=== PATIENT | male | born 1995 | race African-American/Black ===

== ENCOUNTER 2016-06-30 14:42 | Emergency (ER) | payer OTHER ==
[2016-06-30] MEDS ORDERED: DERMABOND TOPICAL SKIN ADHESIVE As Ordered ONE (15:34)
--- NOTE | 2016-06-30 16:11 | EDDOCDS ---
[facility] Name: Rustam Quesada Age: 21 yrs Sex: Male : 1995 Arrival Date: 06/30/2016 Time: 14:42 Bed I7 Private MD: NO PRIMARY PHYSICIAN, . Disposition: 06/30/16 15:49 Discharged to Home/Self Care. Impression: Laceration without foreign body of other part of head - RIGHT cheek. - Condition is Stable. - Discharge Instructions: Tissue Adhesive Wound Care, Facial Laceration, [id number]-[id number]. - Medication Reconciliation, Local Pharmacy Hours form. - Follow up: Private Physician; When: 2 - 3 days; Reason: Further diagnostic work-up, Recheck today's complaints, Continuance of care. - Problem is new. - Symptoms have improved. Historical: - Allergies: Penicillins (Unknown); - Home Meds: 1. albuterol sulfate 90 mcg/actuation Inhl aepb 1 puff every 4 hours as needed (Last dose: Unknown) - PMHx: Asthma; - PSHx: Tracheostomy; - Immunization history:: Last tetanus immunization: 07/2015. - Family history: Not pertinent. - Social history: Smoking status: Patient uses tobacco products, light tobacco smoker. No barriers to communication noted, The patient speaks fluent Upper Sorbian. - : The pt / caregiver states he / she is not on anticoagulants. Home medication list is obtained from the patient. - Exposure Risk Screening:: None identified. Vital Signs: 06/30 14:43 BP 165 / 62; Pulse 74; Resp 18; Temp 98.5; Pulse Ox 100% ; Weight 100.7 kg / 222.01 elp lbs; Height 5 ft. 7 in. (170.18 cm); Pain 5/10; 16:06 BP 146 / 67; Pulse 68; Resp 16; Temp 99.1(O); Pulse Ox 98% on R/A; Pain 0/10; jo3 14:43 Body Mass Index 34.77 (100.70 kg, 170.18 cm) elp Procedures: 15:51 Laceration repair:. btw Laceration: 15:51 Wound Repair of 2cm ( 0.8in ) subcutaneous laceration to right cheek. Linear shaped.. btw Hemostasis noted.. Distal neuro/vascular/tendon intact. Anesthesia: None with None. Wound prep: Simple cleansing with hibiclenz by provider, Wound irrigation with saline by provider. Skin closed with thin layer Dermabond. Dressed with bandaid. Patient tolerated well. MDM: 15:21 [facility] Payment Agreement was scanned into [employer] and attached to record. lg 15:33 Dermabond to bedside ordered. bt 15:39 Financial registration complete. lg Signatures: Aye Montelongo, Reg Reg lg Mara Murillo,RN RN kr3 Stephanie Nina,RN RN jo3 Eliceo Calix PA PA btw Stephanie Knapp, RN RN jc4 The chart was reviewed and I authenticate all verbal orders and agree with the evaluation and treatment provided.Attachments: 15:21 [facility] Payment Agreement lg MTDD
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
--- NOTE | 2016-07-03 11:21 | EDDOCDS ---
Physician Documentation [facility] Name: Rustam Quesdaa Age: 21 yrs Sex: Male : 1995 Arrival Date: 06/30/2016 Time: 14:42 Bed I7 Private MD: NO PRIMARY PHYSICIAN, . Disposition: 06/30/16 15:49 Discharged to Home/Self Care. Impression: Laceration without foreign body of other part of head - RIGHT cheek. - Condition is Stable. - Discharge Instructions: Tissue Adhesive Wound Care, Facial Laceration, Yulh-ck-Yuwh. - Medication Reconciliation, Local Pharmacy Hours form. - Follow up: Private Physician; When: 2 - 3 days; Reason: Further diagnostic work-up, Recheck today's complaints, Continuance of care. - Problem is new. - Symptoms have improved. Historical: - Allergies: Penicillins (Unknown); - Home Meds: 1. albuterol sulfate 90 mcg/actuation Inhl aepb 1 puff every 4 hours as needed (Last dose: Unknown) - PMHx: Asthma; - PSHx: Tracheostomy; - Immunization history:: Last tetanus immunization: 07/2015. - Family history: Not pertinent. - Social history: Smoking status: Patient uses tobacco products, light tobacco smoker. No barriers to communication noted, The patient speaks fluent Nauruan. - : The pt / caregiver states he / she is not on anticoagulants. Home medication list is obtained from the patient. - Exposure Risk Screening:: None identified. Vital Signs: 06/30 14:43 BP 165 / 62; Pulse 74; Resp 18; Temp 98.5; Pulse Ox 100% ; Weight 100.7 kg / 222.01 elp lbs; Height 5 ft. 7 in. (170.18 cm); Pain 5/10; 16:06 BP 146 / 67; Pulse 68; Resp 16; Temp 99.1(O); Pulse Ox 98% on R/A; Pain 0/10; jo3 14:43 Body Mass Index 34.77 (100.70 kg, 170.18 cm) elp Procedures: 15:51 Laceration repair:. btw Laceration: 15:51 Wound Repair of 2cm ( 0.8in ) subcutaneous laceration to right cheek. Linear shaped.. btw Hemostasis noted.. Distal neuro/vascular/tendon intact. Anesthesia: None with None. Wound prep: Simple cleansing with hibiclenz by provider, Wound irrigation with saline by provider. Skin closed with thin layer Dermabond. Dressed with bandaid. Patient tolerated well. MDM: 15:21 [facility] [place] Agreement was scanned into [employer] and attached to record. lg 15:33 Dermabond to bedside ordered. btw 15:39 Financial registration complete. lg 20:34 T-Sheet-- Draft Copy was scanned into [employer] and attached to record. klr Signatures: Aye Montelongo, Reg Reg lg Mara Murillo,RN RN kr3 Stephanie Nina,RN RN jo3 Eliceo Calix PA PA btw Stephanie Knapp, RN RN jc4 Nikki Golden The chart was reviewed and I authenticate all verbal orders and agree with the evaluation and treatment provided.Attachments: 15:21 [facility] Payment Agreement lg 20:34 T-Sheet-- Draft Copy klr Chart Complete MTDD
--- NOTE | 2016-07-03 11:21 | EDDOCDS ---
"Physician Documentation Name: Rustam Quesada Age: 21 yrs Sex: Male : 1995 Arrival Date: 06/30/2016 Time: 14:42 Bed I7 Private MD: NO PRIMARY PHYSICIAN, . Disposition: 06/30/16 15:49 Discharged to Home/Self Care. Impression: Laceration without foreign body of other part of head - RIGHT cheek. - Condition is Stable. - Discharge Instructions: Tissue Adhesive Wound Care, Facial Laceration, Huzn-br-Fitj. - Medication Reconciliation, Local Pharmacy Hours form. - Follow up: Private Physician; When: 2 - 3 days; Reason: Further diagnostic work-up, Recheck today's complaints, Continuance of care. - Problem is new. - Symptoms have improved. Historical: - Allergies: Penicillins (Unknown); - Home Meds: 1. albuterol sulfate 90 mcg/actuation Inhl aepb 1 puff every 4 hours as needed (Last dose: Unknown) - PMHx: Asthma; - PSHx: Tracheostomy; - Immunization history:: Last tetanus immunization: 07/2015. - Family history: Not pertinent. - Social history: Smoking status: Patient uses tobacco products, light tobacco smoker. No barriers to communication noted, The patient speaks fluent Iraqi. - : The pt / caregiver states he / she is not on anticoagulants. Home medication list is obtained from the patient. - Exposure Risk Screening:: None identified. Vital Signs: 06/30 14:43 BP 165 / 62; Pulse 74; Resp 18; Temp 98.5; Pulse Ox 100% ; Weight 100.7 kg / 222.01 elp lbs; Height 5 ft. 7 in. (170.18 cm); Pain 5/10; 16:06 BP 146 / 67; Pulse 68; Resp 16; Temp 99.1(O); Pulse Ox 98% on R/A; Pain 0/10; jo3 14:43 Body Mass Index 34.77 (100.70 kg, 170.18 cm) elp Procedures: 15:51 Laceration repair:. btw Laceration: 15:51 Wound Repair of 2cm ( 0.8in ) subcutaneous laceration to right cheek. Linear shaped.. btw Hemostasis noted.. Distal neuro/vascular/tendon intact. Anesthesia: None with None. Wound prep: Simple cleansing with hibiclenz by provider, Wound irrigation with saline by provider. Skin closed with thin layer Dermabond. Dressed with bandaid. Patient tolerated well. MDM: 15:21 [facility] [place] [place] Payment Agreement was scanned into [employer] and attached to record. lg 15:33 Dermabond to bedside ordered. btw 15:39 Financial registration complete. lg 20:34 T-Sheet-- Draft Copy was scanned into [employer] and attached to record. klr Signatures: Aye Monteolngo, Reg Reg lg Mara Murillo,RN RN kr3 Stephanie Nina,RN RN jo3 Eliceo Calix PA PA btw Stephanie Knapp, RN RN jc4 Nikki Golden The chart was reviewed and I authenticate all verbal orders and agree with the evaluation and treatment provided.Attachments: 15:21 [facility] Payment Agreement lg 20:34 T-Sheet-- Draft Copy klr Chart Complete MTDD"
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
== END 2016-06-30 16:11 | disposition home or self-care (01) ==
LOC: M ED 14:42
DX: S01.411A Laceration without foreign body of right cheek and temporomandibular area, initial encounter (principal); Y00.XXXA Assault by blunt object, initial encounter; Y92.149 Unspecified place in prison as the place of occurrence of the external cause; Y93.89 Activity, other specified; Y99.8 Other external cause status; J45.909 Unspecified asthma, uncomplicated; Z88.0 Allergy status to penicillin; F17.210 Nicotine dependence, cigarettes, uncomplicated